=== PATIENT | female | born 1970 | race Caucasian/White ===

== ENCOUNTER 2023-09-21 16:02 | Emergency (ER) | payer OTHER ==
[2023-09-21] MEDS: Bacitracin Oint 1 GM U/D Packet TOP ONE (18:27)
[2023-09-21] MEDS: Bacitracin Oint 1 GM U/D Packet ONE (18:27)
== END 2023-09-21 19:18 | disposition home or self-care (01) ==
LOC: JP.ED 16:02
DX: S59.002A Unspecified physeal fracture of lower end of ulna, left arm, initial encounter for closed fracture (principal); S00.81XA Abrasion of other part of head, initial encounter; S40.812A Abrasion of left upper arm, initial encounter; S80.812A Abrasion, left lower leg, initial encounter; S80.811A Abrasion, right lower leg, initial encounter; Z86.16 Personal history of COVID-19; Z90.49 Acquired absence of other specified parts of digestive tract; V18.4XXA Pedal cycle driver injured in noncollision transport accident in traffic accident, initial encounter
CPT/HCPCS: 29125; 73090-26-LT; 73090-LT; 73120-26-LT; 73120-LT; 99283-25